=== PATIENT | female | born 1960 | race Caucasian/White ===

== ENCOUNTER → 2024-05-07 10:02 | Outpatient (REF) | payer OTHER, SELFPAY | LOC: RCS 10:02 | PROVIDERS: ATTENDING PHYSICIAN Family Medicine | DX: I05.0 Rheumatic mitral stenosis (principal) | CPT/HCPCS: 93306 ==

== ENCOUNTER → 2024-05-11 15:07 | Outpatient (REF) | payer OTHER, SELFPAY | LOC: WDC 15:07 | PROVIDERS: ATTENDING PHYSICIAN Obstetrics & Gynecology Gynecology; FAMILY PHYSICIAN Family Medicine | DX: Z12.31 Encounter for screening mammogram for malignant neoplasm of breast (principal) | CPT/HCPCS: 77063; 77067 ==

== ENCOUNTER → 2024-05-30 15:02 | Outpatient (REF) | payer OTHER, SELFPAY | LOC: RAD 15:02 | PROVIDERS: ATTENDING PHYSICIAN Family Medicine | DX: M85.80 Other specified disorders of bone density and structure, unspecified site (principal); I05.0 Rheumatic mitral stenosis | CPT/HCPCS: 77080 ==

== ENCOUNTER 2024-09-19 12:46 | Outpatient (RCR) | payer OTHER, SELFPAY ==
[2024-09-19 13:00] VITALS: BP 130/54
[2024-09-19] MEDS: RECLAST 100 IV (13:26)
[2024-09-19 14:00] VITALS: BP 133/54
[2024-09-19 14:01] VITALS: BP 132/54
== END 2024-09-20 09:57 | disposition home or self-care (01) ==
LOC: OID 12:46
PROVIDERS: ATTENDING PHYSICIAN Family Medicine
DX: M81.0 Age-related osteoporosis without current pathological fracture (principal)
CPT/HCPCS: 96365; J3489

== ENCOUNTER → 2025-05-12 15:06 | Outpatient (REF) | payer OTHER, SELFPAY | LOC: WDC 15:06 | PROVIDERS: ATTENDING PHYSICIAN Nurse Practitioner Adult Health; FAMILY PHYSICIAN Family Medicine | DX: Z12.31 Encounter for screening mammogram for malignant neoplasm of breast (principal) | CPT/HCPCS: 77063; 77067 ==